=== PATIENT | male | born 1995 | race African-American/Black ===

== ENCOUNTER 2016-10-11 18:43 | Observation (INO) ==
[2016-10-11] MEDS ORDERED: Ketorolac 30 MG/ML VIAL IVP ONE (19:27)
[2016-10-11] MEDS ORDERED: 0.9 % Sodium Chloride 1,000 ML IVC ONE (19:27)
[2016-10-11] MEDS ORDERED: Ondansetron 4 MG/2 ML VIAL IVP ONE (19:52)
[2016-10-11 20:07] LABS: Bilirubin,Urine Negative (Negative); Blood,Urine Negative (Negative); Clarity,Urine Turbid (Clear); Color,Urine Yellow (Yellow); Glucose,Urine (UA) Normal (Normal); Ketones,Urine 40 mg/dL (Negative); Leukocyte Esterase,Urine Negative (Negative); Nitrite,Urine Negative (Negative); Protein,Urine 30 mg/dL (Neg-Trace); Urobilinogen,Urine Normal (Normal)
[2016-10-11 20:08] LABS: Hyaline Casts,Urine None Seen per lpf (None-Few); RBC,Urine 0-3 per hpf (0-3); Squamous Epithelial Cell,Urine Moderate per lpf (None-Few); WBC,Urine 0-3 per hpf (0-3)
[2016-10-11 20:21] LABS: Basophils % 0.6 %; Eosinophils # 0.2 K/mcL (0.0-0.6); Eosinophils % 2.5 %; Immature Granulocytes % 0.2 % (0-4); Lymphocytes # 1.3 K/mcL (0.6-4.6); Lymphocytes % 20.9 %; Mean Corpuscular HGB Conc 33.3 g/dL (31.6-35.5); Mean Corpuscular Hemoglobin 29.4 pg (28.0-33.3); Mean Corpuscular Volume 88.1 fL (83.0-100.0); Mean Platelet Volume 10.2 fL (9.4-12.4); Monocytes # 0.5 K/mcL (0.0-1.3); Monocytes % 8.2 %; Neutrophils # 4.3 K/mcL (1.6-8.9); Platelet Count 231 K/mcL (140-400); Red Blood Count 5.11 M/mcL (4.19-5.50); Red Cell Distribution Width 12.8 % (11.5-14.5); Segmented Neutrophils % 67.6 %
[2016-10-11 20:26] LABS: Amorphous Sediment,Urine Many (Few); Bacteria,Urine Moderate per hpf (None-Few)
[2016-10-11 20:32] LABS: Alanine Aminotransferase 17 Units/L (0-55); Albumin 4.8 g/dL (3.5-5.0); Albumin/Globulin Ratio 1.5 (1.1-2.2); Alkaline Phosphatase 73 Units/L (38-126); Aspartate Amino Transferase 31 Units/L (5-34); BUN/Creatinine Ratio 10 (6-26); Bilirubin,Direct 0.2 mg/dL (0.0-0.5); Bilirubin,Indirect 0.5 mg/dL (0.0-1.2); Bilirubin,Total 0.7 mg/dL (0.2-1.2); Blood Urea Nitrogen 12 mg/dL (8-26); Calcium 9.8 mg/dL (8.6-10.8); Carbon Dioxide 23 mEq/L (19-29); Chloride 106 mEq/L (98-109); Globulin 3.1 g/dL (2.4-3.5); Glucose 89 mg/dL (70-99); Lipase 18 Units/L (8-78); Osmolality,Calculated 287 (280-300); Sodium 139 mEq/L (136-145); Total Protein 7.9 g/dL (6.0-8.3); eGFR For African Americans > 60 (> 60); eGFR For Non-African Americans > 60 (> 60)
--- NOTE | 2016-10-11 20:36 | Emergency Department Note ---
Disposition Clinical Impression: Abdominal pain Qualifiers: Abdominal location: unspecified location Qualified Code(s): R10.9 - Unspecified abdominal pain Nausea and vomiting Qualifiers: Vomiting type: unspecified Vomiting Intractability: non-intractable Qualified Code(s): R11.2 - Nausea with vomiting, unspecified Disposition: Admitted As Inpatient Condition: Good Abdominal Pain HPI - General Chief Complaint: ED Abdominal Pain Stated Complaint: Left side ABD Pain Time Seen by Provider: 10/11/16 18:59 Source: patient Mode of arrival: ambulatory Limitations: no limitations Nursing Notes Reviewed: Yes Vital Signs Reviewed: Yes - History of Present Illness HPI Narrative: Patient here for evaluation of abdominal pain that started 2 weeks ago. Patient describes in the lower abdomen on the right side that is progressively worse in nature. Associated with nausea and vomiting. Approximately 3 episodes a day. Patient's pain has worsened over the last 2 days. No radiation of pain. No aggravating or alleviating factors. Patient has not been able to keep food down but does not correlate with specific time after eating. Pain Scale: 10 - Related Data Home Medications Medication Instructions Recorded Confirmed No Known Home Drugs 10/11/16 10/11/16 Allergies Allergy/AdvReac Type Severity Reaction Status Date / Time No Known Allergies Allergy Verified 10/11/16 22:34 Review of Systems: CONSTITUTIONAL: No weight loss, fever, chills, weakness or fatigue. HEENT: Eyes: No visual changes. Ears, Nose, Throat: No hearing loss, difficulty talking or unable to swallow. SKIN: No rash or itching. CARDIOVASCULAR: No chest pain, chest pressure or chest discomfort. No palpitations or edema. RESPIRATORY: No shortness of breath, cough or sputum. GASTROINTESTINAL: abdominal pain. Nausea. Vomitting. N GENITOURINARY: No burning on urination or hematuria. NEUROLOGICAL: No headache, dizziness, syncope, paralysis, ataxia, numbness or tingling in the extremities. No change in bowel or bladder control. MUSCULOSKELETAL: No muscle pain, back pain, joint pain or stiffness. Abdominal Pain PMH - Past Medical History Medical history: Reports: non-contributory Male Surgical History: Reports: no surgical history - Social History Smoking status: Never smoker Alcohol use: Reports: none Drug use: Reports: none Physical Exam General appearance: NAD, conversant Eyes: anicteric sclerae, moist conjunctivae; PERRL HENT: Atraumatic; oropharynx clear with moist mucous membranes and no mucosal ulcerations Neck: Normal inspection; Trachea midline; FROM, supple Lungs: CTA, with normal respiratory effort and no intercostal retractions CV: RRR, no MRGs Abdomen: Tenderness to the lower quadrants bilaterally right greater than left. Mild rebound and guarding. Psoas sign negative. Extremities: No peripheral edema or extremity lymphadenopathy Skin: Normal temperature; no rash, ulcers or lesions Psych: Appropriate mood and affect Neuro: alert and oriented to person, place and time - General Limitations: no limitations General appearance: alert Course - Consultations Consultation #1: Discussed with Dr. Rosa at 2210. The case was discussed in its entirety including the history, physical exam, lab findings and CT scan that was unable to visualize the appendix. At this time, Dr. rosa does not recommend repeat CAT scan as the patient's pain has taken a prolonged time course that does not represent acute appendicitis. He believes this may be more due to mesenteric adenitis or inflammatory bowel disease or possible other etiology. He recommends keeping the patient nothing by mouth; giving him Cipro, Flagyl and IV fluids. He would like to be consulted in the hospital to evaluate the patient in the morning so that the patient can be reevaluated and further management plan can be put together. Consultation #2: Discussed with Dr. HERRERA. Patient accepted for admission. Vital Signs Temperature 97.5 F L 10/11/16 18:47 Pulse Rate 67 10/11/16 18:47 Respiratory Rate 18 10/11/16 18:47 Blood Pressure 133/89 10/11/16 18:47 O2 Sat by Pulse Oximetry 100 10/11/16 18:47 Temperature 97.7 F 10/12/16 04:35 Pulse Rate 75 10/12/16 04:35 Respiratory Rate 16 10/12/16 04:35 Blood Pressure 140/56 10/12/16 04:35 O2 Sat by Pulse Oximetry 98 10/12/16 04:35 Oxygen Delivery Oxygen Delivery Room Air Abdominal Pain - Lab Data Result diagrams: 10/11/16 20:00 10/11/16 20:00 Lab Results 10/11/16 10/11/16 10/11/16 Range/Units 20:00 20:00 20:02 WBC 6.4 (4.3-11.1) K/mcL RBC 5.11 (4.19-5.50) M/mcL Hgb 15.0 (12.9-16.9) g/dL Hct 45.0 (37.5-50.1) % MCV 88.1 (83.0-100.0) fL MCH 29.4 (28.0-33.3) pg MCHC 33.3 (31.6-35.5) g/dL RDW 12.8 (11.5-14.5) % Plt Count 231 (140-400) K/mcL MPV 10.2 (9.4-12.4) fL Immature Gran % 0.2 (0-4) % Seg Neutrophils % 67.6 % Lymphocytes % 20.9 % Monocytes % 8.2 % Eosinophils % 2.5 % Basophils % 0.6 % Neutrophils # 4.3 (1.6-8.9) K/mcL Lymphocytes # 1.3 (0.6-4.6) K/mcL Monocytes # 0.5 (0.0-1.3) K/mcL Eosinophils # 0.2 (0.0-0.6) K/mcL Basophils # 0.0 (0.0-0.2) K/mcL Sodium 139 (136-145) mEq/L Potassium 4.0 (3.5-4.5) mEq/L Chloride 106 (98-109) mEq/L Carbon Dioxide 23 (19-29) mEq/L BUN 12 (8-26) mg/dL Creatinine 1.25 (0.72-1.25) mg/dL Est GFR ( Amer) > 60 (> 60) Est GFR (Non-Af Amer) > 60 (> 60) BUN/Creatinine Ratio 10 (6-26) Glucose 89 (70-99) mg/dL Calculated Osmolality 287 (280-300) Calcium 9.8 (8.6-10.8) mg/dL Total Bilirubin 0.7 (0.2-1.2) mg/dL Direct Bilirubin 0.2 (0.0-0.5) mg/dL Indirect Bilirubin 0.5 (0.0-1.2) mg/dL AST 31 (5-34) Units/L ALT 17 (0-55) Units/L Alkaline Phosphatase 73 (38-126) Units/L Serum Total Protein 7.9 (6.0-8.3) g/dL Albumin 4.8 (3.5-5.0) g/dL Globulin 3.1 (2.4-3.5) g/dL Albumin/Globulin Ratio 1.5 (1.1-2.2) Lipase 18 (8-78) Units/L Urine Color Yellow (Yellow) Urine Clarity Turbid A (Clear) Urine pH 8.0 (5.0-8.0) pH Units Ur Specific [place] 1.030 H (1.010-1.025) Urine Protein 30 H (Neg-Trace) mg/dL Urine Glucose (UA) Normal (Normal) mg/dL Urine Ketones 40 H (Negative) mg/dL Urine Blood Negative (Negative) Urine Nitrite Negative (Negative) Urine Bilirubin Negative (Negative) Urine Urobilinogen Normal (Normal) mg/dL Ur Leukocyte Esterase Negative (Negative) Urine Microscopic RBC 0-3 (0-3) per hpf Urine Microscopic WBC 0-3 (0-3) per hpf Ur Squamous Epith Cells Moderate H (None-Few) per lpf Amorphous Sediment Many H (Few) Urine Bacteria Moderate H (None-Few) per hpf Hyaline Casts None Seen (None-Few) per lpf Ur Culture Indicated? NO (NO) Attestation Statement - Attestation Attestation: I, Phan Tarango, examined this patient and my medical decision-making was reviewed with the FICTION WRITER/PA/Advanced Practice Nurse/Resident Physician. I agree with the documented findings, disposition and treatment plan as described except to the extent set forth below. 21-year-old male presents with concerns of right lower quadrant abdominal pain. Patient states the pain is been intermittent and worsening over the past week. Patient states he has tried to tolerate the pain at home however over the past 24 hours. It has become significantly worse. Patient states he is unable to eat or drink secondary to his pain and nausea. Abdominal exam shows significant amount of guarding however there is no rigidity or rebound. CT of the abdomen shows diffuse edema which could be associated with infection however radiologist was unable to visualize the appendix. Resident spoke with the surgeon, Dr. rosa regarding the CT findings and the need for possible serial abdominal exams. Dr. rosa recommended patient be admitted to the hospitalist for further evaluation. Patient is comfortable with the plan for admission to the hospital.
[2016-10-11] MEDS ORDERED: MetroNIDAZOLE 500 MG/100 ML 500 MG/100 ML BAG IVPB ONE (22:12)
[2016-10-11] MEDS: 0.9 % Sodium Chloride 1,000 ML IVC SCH (22:18)
--- NOTE | 2016-10-12 00:39 | Internal Med History&Physical ---
<DaoAbundio - Last Filed: 10/12/16 03:02> Date of Encounter: 10/12/16 Time of Encounter: 00:37 Assessment and Plan (1) Abdominal pain Current visit: Yes Status: Acute Unclear etiology at this point; cannot rule out inflammatory vs. infectious vs. hematologic Initial labs are normal but CT shows non-specific inflammation Surgery was contacted in the ED and recommended Fluids, Cipro/Flagyl, and bowel rest Will keep NPO in preparation for possible procedure Qualifiers: Abdominal location: unspecified location Qualified Code(s): R10.9 - Unspecified abdominal pain (2) Nausea and vomiting Current visit: Yes Status: Acute Likely secondary to inflammatory process as demonstrated by CT Will support with anti-emetics and fluid repletion Qualifiers: Vomiting type: unspecified Vomiting Intractability: non-intractable Qualified Code(s): R11.2 - Nausea with vomiting, unspecified (3) DVT prophylaxis Current visit: Yes Status: Acute Heparin 5000 units BID Internal Medicine - H&P: HPI Chief complaint: ab pain Admitted From: Home Plans for Post Hospital Care: Home History of present illness: Mr. Mena is a 21 year old male who presents to the ED with abdominal pain associated with nausea and vomiting over the past two weeks. He states the symptoms first started after he was eating a meal from a food truck 2 Mondays ago. He describes the pain as diffuse but worse in his lower right quadrant. He states the symptoms have been progressive and he has 6-10 episodes of vomiting a day. He states it appeared to be all food at first but progressed to bile, denied blood. Hhe states that his bowel movements have been normal and denies any constipation or diarrhea. He has never had anything like this in the past and denies any significant surgical or medical history and has not taken any medications or changed his diet recently. He also reports cyclical fever and chills. He admits to eating and drinking less than usual. Patient denies any chest pain, short of breath. Past Med Surg Social Fam HX - Past Medical History Medical history: non-contributory Psychiatric history: no psych history - Social History Smoking Status: Never smoker Smokeless Tobacco Status: No Alcohol use: none Drug use: none, marijuana Internal Medicine - H&P: Meds No Known Home Drugs 10/11/16 [History] Allergies No Known Allergies Allergy (Verified 10/11/16 22:34) All Systems PM: A 10-system review of systems was performed and is negative for pertinent findings except as documented above in the HPI. - Constitutional Constitutional: chills, fever(s), no night sweats - EENT Eyes: no change in vision, no discharge, no pain, no photophobia Ears: no ear discharge, no ear pain, no tinnitus Nose, mouth and throat: no dysphagia, no nasal discharge, no neck pain, no sore throat - Cardiovascular Cardiovascular ROS IM: no chest pain, no diaphoresis, no dyspnea, no lightheadedness, no palpitations, no syncope - Respiratory Respiratory: no cough, no dyspnea, no wheezing, no excessive phlegm production - Gastrointestinal Gastrointestinal: abdominal pain, nausea, vomiting, no diarrhea, no hematemesis , no hematochezia, no melena - Musculoskeletal Musculoskeletal ROS IM: no numbness, no tingling - Integumentary Integumentary IM: no rash, no unusual bruising - Neurological Neurological ROS: no confusion, no convulsions, no focal weakness, no numbness, no tingling, no tremor(s) - Hematologic/Lymphatic Hematologic/Lymphatic: no easy bruising - Constitutional Vitals: Temp Pulse Resp BP Pulse Ox 98.5 F 107 16 129/87 96 10/11/16 23:03 10/11/16 23:03 10/11/16 23:03 10/11/16 23:03 10/11/16 23:03 General appearance: Present: cooperative, pleasant, no acute distress, answers questions appropriately - Head Head exam: Present: atraumatic, normocephalic - Eye Eye exam: Present: PERRL, conjuntiva pink, sclera anicteric - Neck Neck exam general surgery: Present: supple, trachea midline. Absent: lymphadenopathy - Respiratory Respiratory exam: Present: CTAB. Absent: accessory muscle use, rales, rhonchi, wheezes - Cardiovascular Cardiovascular exam: Present: RRR, +S1, +S2. Absent: diastolic murmur, gallop, rubs, systolic murmur - GI/Abdominal GI/Abdominal exam: Present: normal bowel sounds, soft, tenderness (RLQ, no jovel's sign), no peritoneal signs. Absent: distended, firm, guarding, hernia , pulsatile mass, rebound - Extremities Exam Extremities exam: Present: warm, radial pulses palpable and symetrical. Absent : calf tenderness, cyanotic, pedal edema - Neurological Exam Neurological exam: Present: alert, no focal deficits. Absent: facial droop, speech deficit - Skin Skin exam: Present: dry, intact Internal Med - H&P Results - Labs CBC & Chem 7: 10/11/16 20:00 10/11/16 20:00 <Gael Mosley - Last Filed: 10/12/16 06:35> Date of Encounter: 10/12/16 Internal Medicine - H&P: HPI History of present illness: Mr. Mena is a 21 year old male All Systems PM: A 10-system review of systems was performed and is negative for pertinent findings except as documented above in the HPI. - Constitutional Vitals: Temp Pulse Resp BP Pulse Ox 97.7 F 75 16 140/56 98 10/12/16 04:35 10/12/16 04:35 10/12/16 04:35 10/12/16 04:35 10/12/16 04:35 Internal Med - H&P Results - Labs CBC & Chem 7: 10/11/16 20:00 10/11/16 20:00 - Attending Attestation I examined this patient and my medical decision-making was reviewed with the Resident Physician, Dr. Dc. I agree with the documented findings, disposition and treatment plan as described except to the extent set forth below. I have independently obtained history and examined the patient and my findings are summarized below: Patient presented to the hospital for severe abdominal pain. On my examination his abdomen is soft and nontender. He states that he is abdominal pain has improved CT abdomen and pelvis shows mesenteric inflammation which is a nonspecific finding. Appendix could not be visualized. Plan: Supportive care with IV fluids, IV antibiotics, general surgical consult.
[2016-10-12] MEDS ORDERED: Naloxone 0.4 MG/ML INJ IVP PRN (00:52)
[2016-10-12] MEDS ORDERED: Acetaminophen 325 MG TABLET PO PRN (00:52)
[2016-10-12] MEDS ORDERED: Ondansetron 4 MG/2 ML VIAL IVP PRN (00:52)
[2016-10-12] MEDS ORDERED: *HR* Morphine 2 MG/ML SYRINGE IVP PRN (00:54)
[2016-10-12] MEDS: *HR* Heparin 5,000 UNIT/ML VIAL SQ SCH ×2 (05:30→17:41)
[2016-10-12 07:35] LABS: BUN/Creatinine Ratio 11 (6-26); Blood Urea Nitrogen 11 mg/dL (8-26); Calcium 8.6 mg/dL (8.6-10.8); Carbon Dioxide 26 mEq/L (19-29); Chloride 110 mEq/L (98-109); Glucose 76 mg/dL (70-99); Osmolality,Calculated 288 (280-300); Potassium 3.8 mEq/L (3.5-4.5); Sodium 140 mEq/L (136-145); eGFR For African Americans > 60 (> 60); eGFR For Non-African Americans > 60 (> 60)
[2016-10-12 07:39] LABS: INR 1.3; Prothrombin Time 14.1 Seconds (9.4-12.1)
[2016-10-12] MEDS: MetroNIDAZOLE 500 MG/100 ML 500 MG/100 ML BAG IVPB SCH ×3 (09:21→23:35)
[2016-10-12] MEDS: Pantoprazole 40 MG VIAL IVP SCH (09:21)
[2016-10-12] MEDS: 0.9 % Sodium Chloride 1,000 ML IVC SCH ×2 (09:22→21:56)
--- NOTE | 2016-10-12 10:24 | Event Note ---
<Curt Wynne - Last Filed: 10/12/16 15:28> Date of Encounter: 10/12/16 Time of Encounter: 10:24 Last Vital Signs Temp 98.3 F 10/12/16 08:20 Pulse 64 10/12/16 08:20 Resp 16 10/12/16 08:20 BP 99/58 10/12/16 08:20 Pulse Ox 96 10/12/16 08:20 Resting comfortably in bed in no acute distress. Continue Cipro and Flagyl ( day 1). P Given age and inflammatory nature of current illness consider inflammatory bowel disease as possible differential diagnosis. Patient is currently NPO awaiting GI evaluation. <Remington Yepez - Last Filed: 10/12/16 17:52> Date of Encounter: 10/12/16 I examined this patient and my medical decision-making was reviewed with the Resident Physician. I agree with the documented findings, disposition and treatment plan as described except to the extent set forth below.
[2016-10-13 05:42] LABS: Hematocrit 37.9 % (37.5-50.1); Mean Corpuscular HGB Conc 33.8 g/dL (31.6-35.5); Mean Platelet Volume 10.7 fL (9.4-12.4); Platelet Count 147 K/mcL (140-400); Red Blood Count 4.26 M/mcL (4.19-5.50); Red Cell Distribution Width 13.1 % (11.5-14.5)
[2016-10-13 05:54] LABS: BUN/Creatinine Ratio 8 (6-26); Blood Urea Nitrogen 9 mg/dL (8-26); Calcium 8.7 mg/dL (8.6-10.8); Carbon Dioxide 29 mEq/L (19-29); Chloride 109 mEq/L (98-109); Glucose 85 mg/dL (70-99); Osmolality,Calculated 288 (280-300); Potassium 4.1 mEq/L (3.5-4.5); Sodium 140 mEq/L (136-145); eGFR For African Americans > 60 (> 60); eGFR For Non-African Americans > 60 (> 60)
[2016-10-13 06:01] LABS: Hemoglobin 12.8 g/dL (12.9-16.9)
[2016-10-13] MEDS: *HR* Heparin 5,000 UNIT/ML VIAL SQ SCH ×2 (06:13→18:36)
[2016-10-13] MEDS: Pantoprazole 40 MG VIAL IVP SCH (09:36)
[2016-10-13] MEDS: MetroNIDAZOLE 500 MG/100 ML 500 MG/100 ML BAG IVPB SCH ×3 (09:36→23:35)
[2016-10-13] MEDS: 0.9 % Sodium Chloride 1,000 ML IVC SCH ×2 (09:37→23:06)
--- NOTE | 2016-10-13 15:35 | Discharge Summary ---
<Curt Wynne - Last Filed: 10/13/16 18:19> Date of Encounter: 10/13/16 Time of Encounter: 08:00 - Discharge Diagnosis (1) Abdominal pain Priority: Primary Status: Acute Comments: Colitis, possible inflammatory bowel disease. Patient tolerating clear liquid diet. Awaiting GI recommendations (2) Nausea and vomiting Priority: Primary Status: Resolved (3) DVT prophylaxis Priority: Primary Status: Acute Comments: Heparin Patient seen and examined, plan discussed with and agreed upon with Dr. Yepez - Discharge Medications Home Medications: No Known Home Drugs 10/11/16 [History] Allergies/Adverse Reactions: Allergies No Known Allergies Allergy (Verified 10/11/16 22:34) Date of admission: 10/11/16 22:42 Primary care physician: Ashely Martin Consults: 10/12/16 11:53 Consult to Gastroenterology [CONS] Routine Consulting Provider: Gastroenterology Erna Reason for Consult: Abd pain, N/V, Colitis, possible inflammatory bowel disease Time Notified: 11:54 Call Completed: Yes Discharging clinician: Remington Yepez Anticipated date of discharge: 10/13/16 - Patient Status Disposition: Home, Self-Care Condition: Good Functional capacity at discharge: independent ambulation Overall status at discharge: patient is back to baseline - Discharge Instructions Follow Up With: Ashely Martin MD [Primary Care Provider] - 10/19/16 2:15 pm (Please follow up as schedule..) Agatha Camp MD [Partnered Physician] - Additional Instructions: Continue taking Cipro and Flagyl BRAT diet, advance to regular diet as tolerated Follow up with rail equipment operator and PCP within 1-2 weeks - Diet and Activity Activity: increase activity as tolerated Diet: other (BRAT diet) Hospital course: Mr. Mena is a 21 year old male with a negative PMH who presented with abdominal pain, nausea and vomiting over the past two weeks. He states the symptoms first started after eating a meal from a food truck 2 weeks ago. He describes the abdominal pain as diffuse and worst in his right lower quadrant. He states the symptoms have been progressive and he has 6-10 episodes of vomiting a day. He admits to daily THC use and subjective fever and chills. Patient reported normal bowel movements and denies any constipation, diarrhea, hematemesis, hematochezia or previous abdominal surgeries. He denies similar symptoms in the past and denies taking any medications or changing his diet. He reports avoiding dairy products and eating and drinking less than usual. In the ED, CT abdomen and pelvis with IV contrast revealed nonspecific mesenteric inflammation/ edema, and possible mural thickening. The appendix was not visualized. Patient was started on Cipro and Flagyl. GI was consulted due to inflammatory nature of symptoms to evaluate for inflammatory bowel disease. He continued to improve and was later advanced to a clear liquid diet. - Time Spent with Patient Total time spent providing and/or coordinating discharge services: - Constitutional Vitals: Temp Pulse Resp BP Pulse Ox 98.5 F 69 17 133/83 99 10/13/16 12:40 10/13/16 12:40 10/13/16 12:40 10/13/16 12:40 10/13/16 12:40 General appearance: Present: cooperative, pleasant, no acute distress, answers questions appropriately - Head Head exam: Present: atraumatic, normocephalic - Eye Eye exam: Present: PERRL, conjuntiva pink, sclera anicteric Pupils: Present: PERRL - ENT ENT exam: Present: mucous membranes moist, normal oropharynx - Neck Neck exam general surgery: Present: supple, trachea midline. Absent: lymphadenopathy - Respiratory Respiratory exam: Present: CTAB. Absent: accessory muscle use, rales, rhonchi, wheezes - Cardiovascular Cardiovascular exam: Present: RRR, +S1, +S2. Absent: diastolic murmur, gallop, rubs, systolic murmur - GI/Abdominal GI/Abdominal exam: Present: normal bowel sounds, soft, no peritoneal signs. Absent: distended, firm, guarding, tenderness - Extremities Exam Extremities exam: Present: warm, radial pulses palpable and symetrical. Absent : calf tenderness, cyanotic, pedal edema - Neurological Exam Neurological exam: Present: CN II-XII intact, oriented X3, no focal deficits. Absent: pronater drift, facial droop, speech deficit - Psychiatric Psychiatric exam: Present: normal affect, normal mood - Skin Skin exam: Present: dry, intact, warm <Marleni,Remington P - Last Filed: 10/13/16 18:57> Date of Encounter: 10/13/16 - Discharge Diagnosis (1) Nausea and vomiting Status: Resolved Qualifiers: Vomiting type: unspecified Vomiting Intractability: non-intractable Qualified Code(s): R11.2 - Nausea with vomiting, unspecified (2) Abdominal pain Status: Acute Qualifiers: Abdominal location: unspecified location Qualified Code(s): R10.9 - Unspecified abdominal pain (3) DVT prophylaxis Status: Acute Date of admission: 10/11/16 22:42 Primary care physician: Ashely Martin Consults: 10/12/16 11:53 Consult to Gastroenterology [CONS] Routine Consulting Provider: Gastroenterology Erna Reason for Consult: Abd pain, N/V, Colitis, possible inflammatory bowel disease Time Notified: 11:54 Call Completed: Yes Hospital course: Mr. Mena is a 21 year old male - Time Spent with Patient Total time spent providing and/or coordinating discharge services: - Constitutional Vitals: Temp Pulse Resp BP Pulse Ox 97.9 F 56 18 145/93 100 10/13/16 17:10 10/13/16 17:10 10/13/16 17:10 10/13/16 17:10 10/13/16 17:10 - Attending Attestation patient will not be going home today please see progress note from today
--- NOTE | 2016-10-13 18:17 | Internal Med Progress Note ---
Date of Encounter: 10/13/16 Time of Encounter: 18:15 - Assessment and plan (1) Nausea and vomiting Current Visit: Yes Status: Resolved Assessment and plan: has persistent nausea and vomiting. Improved with present treatment. plan will continue IV Abx will continue IVF for now if persistent improvement then possible switch to oral abx tomorrow Qualifiers: Vomiting type: unspecified Vomiting Intractability: non-intractable Qualified Code(s): R11.2 - Nausea with vomiting, unspecified (2) Abdominal pain Current Visit: Yes Status: Acute Assessment and plan: has still occasional abdominal pain and will continue present treatment abdominal pain is improving Qualifiers: Abdominal location: unspecified location Qualified Code(s): R10.9 - Unspecified abdominal pain (3) DVT prophylaxis Current Visit: Yes Status: Acute Assessment and plan: heparin - Subjective Interval history: seen and examined. chart reviewed. patient does not have any nausea or vomiting. denies chest pain. has occasional abdominal pain. - Constitutional Vitals: Temp Pulse Resp BP Pulse Ox 97.9 F 56 18 145/93 100 10/13/16 17:10 10/13/16 17:10 10/13/16 17:10 10/13/16 17:10 10/13/16 17:10 General appearance: Present: cooperative, pleasant, no acute distress, answers questions appropriately - Head Head exam: Present: atraumatic, normocephalic - Eye Eye exam: Present: PERRL, conjuntiva pink, sclera anicteric Pupils: Present: PERRL - Neck Neck exam general surgery: Present: supple, trachea midline. Absent: lymphadenopathy - Respiratory Respiratory exam: Present: CTAB. Absent: accessory muscle use, rales, rhonchi, wheezes - Cardiovascular Cardiovascular exam: Present: RRR, +S1, +S2. Absent: diastolic murmur, gallop, rubs, systolic murmur - GI/Abdominal GI/Abdominal exam: Present: normal bowel sounds, soft, no peritoneal signs. Absent: distended, tenderness - Extremities Exam Extremities exam: Present: warm, radial pulses palpable and symetrical. Absent : calf tenderness, cyanotic, pedal edema - Neurological Exam Neurological exam: Present: CN II-XII intact, oriented X3, no focal deficits. Absent: pronater drift, facial droop, speech deficit - Skin Skin exam: Present: dry, intact Internal Medicine: Result - Labs CBC & Chem 7: 10/13/16 04:53 10/13/16 04:53 Labs: Short CBC 10/13/16 Range/Units 04:53 WBC 3.0 L D (4.3-11.1) K/mcL Hgb 12.8 L D (12.9-16.9) g/dL Hct 37.9 (37.5-50.1) % Plt Count 147 (140-400) K/mcL BMP 10/13/16 04:53 Sodium 140 Potassium 4.1 Chloride 109 Carbon Dioxide 29 BUN 9 Creatinine 1.17 Glucose 85 Calcium 8.7 - ABG Interpretation ABG results: PT/INR, D-dimer PT 14.1 Seconds (9.4-12.1) H 10/12/16 06:25 Consult Discharge Plan - Plan Additional Instructions: Continue taking Cipro and Flagyl BRAT diet, advance to regular diet as tolerated Follow up with refrigerating machine operator and PCP within 1-2 weeks Referrals: Ashely Martin MD [Primary Care Provider] - 10/19/16 2:15 pm (Please follow up as schedule..) Agatha Camp MD [Partnered Physician] -
--- NOTE | 2016-10-13 18:20 | Gastroenterology Consult Note ---
Date of Encounter: 10/13/16 Time of Encounter: 18:00 - Assessment and plan (1) Abdominal pain Current Visit: Yes Status: Acute Assessment and plan: Patient with the acute GI symptom after eating food from a food truck. Symptoms are suspicious for infectious gastroenteritis. He has no more diarrhea and no more vomiting and abdominal pain has mostly resolved. Continue with the IV fluids along with empiric antibiotics. Patient is also has mild pancytopenia and will need to follow his CBC in the morning to make sure that his pancytopenia is not getting worse. No previous GI symptoms to consider IBD. No need for endoscopic procedures. Qualifiers: Abdominal location: unspecified location Qualified Code(s): R10.9 - Unspecified abdominal pain - Time Spent With Patient Total time spent is greater than 50% in coordination of care (as documented) at patient's floor/unit and/or counseling patient: GI History of Present Illness - Data of Consult Consult date: 10/13/16 Requesting Physician: Remington Yepez MD - Consult Narrative Reason for consult: Pain with abnormal imaging of the bowel History of present illness: Mr. Mena is a 21 year old male with no significant past medical history who was admitted because of abdominal pain. Per patient he ate from a food -truck about 2 weeks ago and within a few hours started having abdominal pain along with vomiting and for the first 3 days he had loose stools. Patient lately is not having any loose stool but he still was having abdominal pain, came to the ER and t had a CT scan done which showed the edema in the periportal area along with some bowel wall thickening so was admitted put on IV fluids along with IV antibiotics and per patient he is currently feeling 100% better. Abd pain has mostly resolved and not having any nausea or vomiting or diarrhea at this moment Past Med Surg Social Fam HX - Past Medical History Medical history: non-contributory Psychiatric history: no psych history - Social History Smoking Status: Never smoker Smokeless Tobacco Status: No Alcohol use: none Drug use: none Review of Systems: GI: as per [employer]: some fever and chills before EYES: denies yellow discoloration ENT: denies pain with swallowing or difficulty swallowing CARDIO: denies chest pain, palpitations RESP: denies shortness of breath or wheezing : denies change in color of urine NEURO: denies any weakness HEME: Denies any bruising MS: denies joint pain, joint swelling or back pain. DERM: denies rash or itching PSYCH: denies history of: depression or anxiety - Constitutional Vitals: Temp Pulse Resp BP Pulse Ox 97.9 F 56 18 145/93 100 10/13/16 17:10 10/13/16 17:10 10/13/16 17:10 10/13/16 17:10 10/13/16 17:10 - Head Head exam: Present: atraumatic - Eye Eye exam: Present: sclera anicteric - Neck Neck exam general surgery: Present: supple - Respiratory Additional comments: bilateral good air entry - Cardiovascular Cardiovascular exam: Present: +S1, +S2 Additional comments: regular - GI/Abdominal GI/Abdominal exam: Present: soft Additional comments: No focal tenderness. No Abdominal swelling. - Neurological Exam Neurological exam: Present: oriented X3 - Skin Skin exam: Present: dry, warm Results - Labs CBC & Chem 7: 10/13/16 04:53 10/13/16 04:53 Labs: Last Result Calcium 8.7 mg/dL (8.6-10.8) 10/13/16 04:53 Entire Visit Hgb 12.8 g/dL (12.9-16.9) L D 10/13/16 04:53 Hct 37.9 % (37.5-50.1) 10/13/16 04:53 PT 14.1 Seconds (9.4-12.1) H 10/12/16 06:25 Total Bilirubin 0.7 mg/dL (0.2-1.2) 10/11/16 20:00 AST 31 Units/L (5-34) 10/11/16 20:00 ALT 17 Units/L (0-55) 10/11/16 20:00 Lipase 18 Units/L (8-78) 10/11/16 20:00 - ABG ABG results: PT/INR, D-dimer PT 14.1 Seconds (9.4-12.1) H 10/12/16 06:25 Consult Discharge Plan - Plan Additional Instructions: Continue taking Cipro and Flagyl BRAT diet, advance to regular diet as tolerated Follow up with assembler knife and PCP within 1-2 weeks Referrals: Ashely Martin MD [Primary Care Provider] - 10/19/16 2:15 pm (Please follow up as schedule..) Agatha Camp MD [Partnered Physician] -
[2016-10-14] MEDS: *HR* Heparin 5,000 UNIT/ML VIAL SQ SCH (06:29)
[2016-10-14 07:55] VITALS: BP 128/76
[2016-10-14] MEDS: MetroNIDAZOLE 500 MG/100 ML 500 MG/100 ML BAG IVPB SCH (08:40)
[2016-10-14] MEDS: Pantoprazole 40 MG VIAL IVP SCH (08:40)
[2016-10-14] MEDS: 0.9 % Sodium Chloride 1,000 ML IVC SCH (08:42)
--- NOTE | 2016-10-14 08:59 | Discharge Summary ---
<Curt Wynne - Last Filed: 10/14/16 08:56> Date of Encounter: 10/14/16 Time of Encounter: 08:56 - Discharge Diagnosis (1) Viral gastroenteritis Priority: Primary Status: Acute Comments: Symptoms are suspicious for infectious gastroenteritis after eating food from a food truck. He has no more diarrhea and no more vomiting and abdominal pain has mostly resolved. Continue empiric antibiotics. No previous GI symptoms to consider IBD. No need for endoscopic procedures. Appreciate GI recommendations (2) Abdominal pain Priority: Primary Status: Acute Comments: See above Qualifiers: Abdominal location: unspecified location Qualified Code(s): R10.9 - Unspecified abdominal pain (3) Nausea and vomiting Priority: Primary Status: Resolved Comments: Patient tolerating clear liquid diet. Advance to regular diet Qualifiers: Vomiting type: unspecified Vomiting Intractability: non-intractable Qualified Code(s): R11.2 - Nausea with vomiting, unspecified (4) DVT prophylaxis Priority: Primary Status: Acute Comments: Heparin Patient seen and examined, plan discussed with and agreed upon with Dr. Yepez - Discharge Medications Prescriptions: Ciprofloxacin HCl [Cipro] 500 mg PO BID #14 tablet metroNIDAZOLE [Flagyl] 500 mg PO TID #21 tablet Home Medications: Acetaminophen [Tylenol] 650 mg PO Q6HR PRN tab 10/14/16 [Rx] Ciprofloxacin HCl [Cipro] 500 mg PO BID #14 tablet 10/14/16 [Rx] metroNIDAZOLE [Flagyl] 500 mg PO TID #21 tablet 10/14/16 [Rx] Allergies/Adverse Reactions: Allergies No Known Allergies Allergy (Verified 10/11/16 22:34) Date of admission: 10/11/16 22:42 Primary care physician: Ashely Martin Consults: 10/12/16 11:53 Consult to Gastroenterology [CONS] Routine Consulting Provider: [facility] Reason for Consult: Abd pain, N/V, Colitis, possible inflammatory bowel disease Time Notified: 11:54 Call Completed: Yes Discharging clinician: Remington Yepez Anticipated date of discharge: 10/14/16 - Patient Status Disposition: Home, Self-Care Condition: Good - Discharge Instructions Instructions: Ciprofloxacin (By mouth), Metronidazole (By mouth) Follow Up With: Ashely Martin MD [Primary Care Provider] - 10/19/16 2:15 pm (Please follow up as schedule..) Agatha Camp MD [Partnered Physician] - (Web request submitted 10/14/16) Additional Instructions: Continue taking Cipro and Flagyl BRAT diet, advance to regular diet as tolerated Follow up with spare person and PCP within 1-2 weeks Hospital course: Mr. Mena is a 21 year old male with a negative PMH who presented with abdominal pain, nausea and vomiting over the past two weeks. He states the symptoms first started after eating a meal from a food truck 2 weeks ago. He describes the abdominal pain as diffuse and worst in his right lower quadrant. He states the symptoms have been progressive and he has 6-10 episodes of vomiting a day. He admits to daily THC use and subjective fever and chills. Patient reported normal bowel movements and denies any constipation, diarrhea, hematemesis, hematochezia or previous abdominal surgeries. He denies similar symptoms in the past and denies taking any medications or changing his diet. He reports avoiding dairy products and eating and drinking less than usual. In the ED, CT abdomen and pelvis with IV contrast revealed nonspecific mesenteric inflammation/ edema, and possible mural thickening. The appendix was not visualized. Patient was started on Cipro and Flagyl. GI was consulted due to inflammatory nature of symptoms to evaluate for inflammatory bowel disease. GI recommended No need for endoscopic procedures given current symptoms and no previous GI symptoms to consider IBD. He continued to improve and was later advanced to regular diet prior to discharge. Patient instructed to continue Cipro and Flagyl for a total of 10 days of treatment and follow-up with PCP and GI upon discharge - Time Spent with Patient Total time spent providing and/or coordinating discharge services: - Constitutional Vitals: Temp Pulse Resp BP Pulse Ox 97.9 F 59 16 128/76 99 10/14/16 07:53 10/14/16 07:53 10/14/16 07:53 10/14/16 07:53 10/14/16 07:53 General appearance: Present: cooperative, pleasant, no acute distress, answers questions appropriately - Head Head exam: Present: atraumatic, normocephalic - Eye Eye exam: Present: PERRL, conjuntiva pink, sclera anicteric Pupils: Present: PERRL - ENT ENT exam: Present: mucous membranes moist, normal oropharynx - Neck Neck exam general surgery: Present: supple, trachea midline. Absent: lymphadenopathy - Respiratory Respiratory exam: Present: CTAB. Absent: accessory muscle use, rales, rhonchi, wheezes - Cardiovascular Cardiovascular exam: Present: RRR, +S1, +S2. Absent: diastolic murmur, gallop, rubs, systolic murmur - GI/Abdominal GI/Abdominal exam: Present: normal bowel sounds, soft, no peritoneal signs. Absent: distended, tenderness - Extremities Exam Extremities exam: Present: warm, radial pulses palpable and symetrical. Absent : calf tenderness, cyanotic, pedal edema - Neurological Exam Neurological exam: Present: CN II-XII intact, oriented X3, no focal deficits. Absent: pronater drift, facial droop, speech deficit - Psychiatric Psychiatric exam: Present: normal affect, normal mood - Skin Skin exam: Present: dry, intact <Marleni,Remington P - Last Filed: 10/14/16 17:39> Date of Encounter: 10/14/16 - Discharge Diagnosis (1) Nausea and vomiting Status: Resolved Qualifiers: Vomiting type: unspecified Vomiting Intractability: non-intractable Qualified Code(s): R11.2 - Nausea with vomiting, unspecified (2) Abdominal pain Status: Acute Qualifiers: Abdominal location: unspecified location Qualified Code(s): R10.9 - Unspecified abdominal pain (3) DVT prophylaxis Status: Acute Date of admission: 10/11/16 22:42 Primary care physician: Ashely Martin Consults: 10/12/16 11:53 Consult to Gastroenterology [CONS] Routine Consulting Provider: [facility] Reason for Consult: Abd pain, N/V, Colitis, possible inflammatory bowel disease Time Notified: 11:54 Call Completed: Yes Hospital course: Mr. Mena is a 21 year old male - Time Spent with Patient Total time spent providing and/or coordinating discharge services: - Constitutional Vitals: Temp Pulse Resp BP Pulse Ox 97.9 F 59 16 128/76 99 10/14/16 07:53 10/14/16 07:53 10/14/16 07:53 10/14/16 07:53 10/14/16 07:53 - Attending Attestation I examined this patient and my medical decision-making was reviewed with the Resident Physician. I agree with the documented findings, disposition and treatment plan as described except to the extent set forth below.
== END 2016-10-14 10:15 | disposition home or self-care (01) ==
LOC: 2ANU 18:43 → EMEROO 18:43 → SUATTDRO 22:42 → 2ANU 22:56
PROVIDERS: ADMIT Internal Medicine; ATTEND Internal Medicine